=== PATIENT | male | born 1970 | race Caucasian/White ===

== ENCOUNTER 2018-03-20 15:50 | Emergency (ER) | payer BC ==
[2018-03-20 15:56] VITALS: BP 139/79
--- NOTE | 2018-03-20 15:58 | EDPHY ---
H & P Stated Complaint: Pt scratched R elbow and now swolen,tender,inflammed Time Seen by Provider: 03/20/18 15:58 - Personal History Current Tetanus Diphtheria and Acellular Pertussis (TDAP): No - Medical/Surgical History Other PMH: healthy - Social History Smoking Status: Never smoked Constitutional: Initial Vital Signs Temperature (C) 36.8 C 03/20/18 15:53 Heart Rate 75 03/20/18 15:53 Respiratory Rate 16 03/20/18 15:53 Blood Pressure 139/79 H 03/20/18 15:53 O2 Sat (%) 95 03/20/18 15:53 O2 Delivery Mode Room Air Allergies/Adverse Reactions: No Known Allergies Allergy (Unverified 03/20/18 15:56) Home Medications: Medication Instructions Recorded Cephalexin [Keflex (RX)] 500 mg PO TID #30 cap 03/20/18 Sulfamethox/Tmp 800/160 mg 1 tab PO BID #20 tab 03/20/18 [Bactrim Ds] Medical Decision Making ED Course/Re-evaluation: bug bite originally thursday or thursday scratched it last night started swelling larger today normal ranger of motion olecranon bursitis repine for fu next week, call thursday for appt CHIEF COMPLAINT: Redness and swelling of the right elbow HISTORY OF PRESENT ILLNESS: The patient is a 47 y/o male complaining of redness and swelling of the right elbow. A few days ago, he believes he was bit by a bug and developed a scab. He reopened the scab. Yesterday, he noticed that it was swollen and red. Today, he notes it had grown in size. He reports normal range of motion and went to work out this morning. He denies fever or any other associated symptoms. REVIEW OF SYSTEMS: A 10 point review of systems was performed and is negative with the exception of the elements mentioned in the history of present illness. PHYSICAL EXAM: HR, BP, O2 Sat, RR. Temp noted General Appearance: Alert, well hydrated, appropriate, and non-toxic appearing. Head: Atraumatic without scalp tenderness or obvious injury Eyes: Pupils equal, round, reactive to light and accommodation, EOMI, no trauma , no injection. Nose: Atraumatic, no rhinorrhea. Throat: There is no erythema or exudates, no lesions, normal tonsils, mucus membranes moist. Neck: Supple, nontender, no lymphadenopathy. Respiratory: No retractions, no distress, no wheezes, and no accessory muscle use. Cardiovascular: Regular rate and rhythm, no murmurs, rubs, or gallops. Musculoskeletal: Swelling and redness over the olecranon bursa. Normal active ROM of all extremities, atraumatic. Neurological: Alert, appropriate, and interactive. Skin: No rashes, good turgor, no nodules on palpation. Past medical history: Denies Past surgical history: Denies Family history: Non-contributory Social history: , employed, non-smoker DIFFERENTIAL DIAGNOSIS: The differential diagnosis for this patient's swollen and red elbow includes but is not limited to olecranon bursitis, intraarticular infection, and cellulitis. MEDICAL DECISION MAKING: The patient presents with swelling and redness over the olecranon bursitis. He has normal range of motion and worked out this morning. Based on range of motion and exam, this appears to be olecranon bursitis. I have prescribed Keflex and Bactrim with follow up with Dr. Lemons. Further, I advised him to restrict movement to allow healing. He also requested a tetanus vaccine, which will be administered here. The patient agrees to this course of action. - Data Points Medications Given: Discontinued Medications Diphtheria/Tetanus/Acell Pertussis (Boostrix) 0.5 ml IM .ONCE ONE Stop: 03/20/18 16:11 Last Admin: 03/20/18 16:25 Dose: 0.5 ml Departure - Departure Disposition: Home, Routine, Self-Care Clinical Impression: Olecranon bursitis Qualifiers: Laterality: right Qualified Code(s): M70.21 - Olecranon bursitis, right elbow Condition: Good Instructions: Elbow Bursitis (ED) Additional Instructions: 1. Take both antibiotics as directed. Use a probiotic. 2. Immobilize the elbow in a sling. You can take it off for showering but try to avoid excessive movement. 3. Call Dr. Lemons on Thursday for a follow up appointment next week. 4. You may experience some discomfort at your vaccine site. Seek medical care for excessive swelling or excessive redness, or signs of allergic reaction. 4. Return to the emergency department for worsening of condition. Referrals: Andreas Marvin MD [Primary Care Provider] - As per Instructions Jhonatan Lemons MD [Medical Doctor] - As per Instructions Prescriptions: Cephalexin [Keflex (RX)] 500 mg PO TID #30 cap Sulfamethox/Tmp 800/160 mg [Bactrim Ds] 1 tab PO BID #20 tab Report Scribed for: Gurjit Villafuerte Report Scribed by: Luly Carlisle Date of Report: 03/20/18 Time of Report: 16:43
[2018-03-20] MEDS ORDERED: TDAP ADULT 0.5 ML INJ (BOOSTRIX) IM ONE (16:10)
== END 2018-03-20 16:31 | disposition home or self-care (01) ==
DX: M70.21 Olecranon bursitis, right elbow (principal); Z23 Encounter for immunization
CPT/HCPCS: A4565

== ENCOUNTER → 2018-07-26 | Outpatient (CLI) | payer BC | LOC: FIMAGING 16:21 | PROVIDERS: ATTEND Orthopaedic Surgery | DX: R22.41 Localized swelling, mass and lump, right lower limb (principal) ==